=== PATIENT | male | born 1975 ===

== ENCOUNTER 2023-03-12 07:26 | Day surgery (SDC) | payer OTHER ==
[~2023-03-12] VITALS: Ht 172.7 cm; Wt 69.9 kg
[2023-03-12] MEDS ORDERED: MIRALAX17 GM PO (11:39)
[2023-03-12] MEDS ORDERED: TRAMADOL HCL50 MG PO (11:39)
[2023-03-12] MEDS ORDERED: TYLENOL ARTHRI650 MG PO (11:39)
== END 2023-03-12 14:40 | disposition home or self-care (01) ==
LOC: CIR.AMB 07:26
PROVIDERS: ATTEND Surgery
DX: K40.90 Unilateral inguinal hernia, without obstruction or gangrene, not specified as recurrent (principal); I10 Essential (primary) hypertension; Z88.6 Allergy status to analgesic agent; Z20.822 Contact with and (suspected) exposure to COVID-19
CPT/HCPCS: 49650; C1781